=== PATIENT | male | born 1980 | race Asian ===

== ENCOUNTER 2018-10-28 21:30 | Emergency (ER) | payer BC ==
[~2018-10-28] VITALS: Ht 188 cm; Wt 90.7 kg
[2018-10-28 21:42] VITALS: BP 126/83
--- NOTE | 2018-10-28 21:42 | NUR ---
ED Nurse Note: Patient walk in c/o left arm pain since 10/21/2018. Pain started after getting blood drawn from a lab. Patient has burising and swelling to left arm. Patient reports 5/10 pain. at time of arrival patient's forearm does have irregular borders, no skin peeling, just discoloration. patient is alert and oriented x4, ambulatory with a steady gait, VSS
[2018-10-28] MEDS ORDERED: Ketorolac 30mg Inj IV ONE (22:00)
--- NOTE | 2018-10-28 22:25 | NUR ---
ED Nurse Note: Dr. Fletcher at bedside with patient.
[2018-10-28 22:26] LABS: BASOPHILS % (AUTO) 1.2 % (0.0-2.0); EOSINOPHILS % (AUTO) 1.7 % (0.0-3.0); HEMATOCRIT 40.9 % (42.0-52.0); HEMOGLOBIN 14.2 G/DL (14.2-18.0); LYMPHOCYTES % (AUTO) 32.6 % (20.0-45.0); MEAN CORPUSCULAR VOLUME 91 FL (80-99); MONOCYTES % (AUTO) 6.4 % (1.0-10.0); NEUTROPHILS % (AUTO) 58.2 % (45.0-75.0); PLATELET COUNT 243 K/UL (150-450); RED BLOOD COUNT 4.51 M/UL (4.70-6.10); RED CELL DISTRIBUTION WIDTH 11.6 % (11.6-14.8); WHITE BLOOD COUNT 9.7 K/UL (4.8-10.8)
[2018-10-28 22:28] LABS: ANION GAP 9 mmol/L (5-15); BLOOD UREA NITROGEN 20 mg/dL (7-18); CALCIUM 9.1 MG/DL (8.5-10.1); CARBON DIOXIDE 26 MMOL/L (21-32); CHLORIDE 105 MMOL/L (98-107); CREATININE 1.1 MG/DL (0.55-1.30); POTASSIUM 3.8 MMOL/L (3.5-5.1); SODIUM 140 MMOL/L (136-145)
--- NOTE | 2018-10-28 22:30 | NUR ---
ED Nurse Note: Patient went downstairs to ultrasound
[2018-10-28 22:31] LABS: INR 0.9 (0.9-1.1)
[2018-10-28 22:33] LABS: ALANINE AMINOTRANSFERASE 28 U/L (12-78); ALBUMIN/GLOBULIN RATIO 1.1 (1.0-2.7); ALKALINE PHOSPHATASE 93 U/L (46-116); ASPARTATE AMINO TRANSFERASE < 5 U/L (15-37); BILIRUBIN,TOTAL 0.3 MG/DL (0.2-1.0)
--- NOTE | 2018-10-28 22:47 | Consultation ---
History of Present Illness General Date patient seen: Oct 28, 2018 Reason for Hospitalization: Upper Extremity Injury Present Illness HPI This is a very pleasant 38-year-old male who presents emergency department [facility] for evaluation of worsening left upper extremity pain. Patient states that approximately last Friday at 9 AM in the morning he had a routine blood draw through his left antecubital fossa medial aspect. Soon after he began to develop a little bit of swelling in the area and shooting pain. Over the subsequent 1-2 days began to know significantly more swelling with decrease active and passive range of motion and discomfort. He went to an urgent care which evaluated him and gave him reassurance as well as pain medication and told him to return if worsening condition. Today patient went to his primary care physician who evaluated him noticed a large bruise and had concerns for possible fasciitis and referred him to the emergency department at [facility] for evaluation. Patient states that the swelling/edema has significantly improved over the past week but since the swelling and edema has come down he is noted some bruising in the medial aspect of his left upper arm and worsening discomfort. States that last night he had difficulty falling asleep because no matter what position he would lay in he would feel a shooting pain in his left upper extremity. His pain was worsening he felt very uncomfortable and required evaluation. She describes pain as a sharp shooting pain is left upper extremity from the mid forearm to near the shoulder on the lateral aspect and around the biceps. Patient denies any nausea vomiting fever chills. Otherwise healthy without complaints. She called to evaluate patient given above findings. Allergies: Coded Allergies: No Known Allergies (Unverified , 10/28/18) Medication History No Active Prescriptions or Reported Meds Patient History History Provided By: Patient, Family Member, Medical Record, PMD Healthcare decision maker Resuscitation status Advanced Directive on File Past Medical/Surgical History Past Medical/Surgical History: (1) Pain of left upper extremity Review of Systems Review of Symptoms General ROS: no weight loss or fever Psychological ROS: no depression or mood changes, no memory loss Ophthalmic ROS: no visual changes or eye irritation ENT ROS: no nasal congestion, hearing loss, dizziness Allergy and Immunology ROS: no allergic symptoms or urticaria Hematological and Lymphatic ROS: no swollen glands, unusual bleeding or bruising Endocrine ROS: no polyuria, polydipsia, weight changes, temperature intolerance Respiratory ROS: no cough, shortness of breath, or wheezing Cardiovascular ROS: no chest pain or dyspnea on exertion Gastrointestinal ROS: denies abdominal pain, bright red blood in stool. Musculoskeletal ROS: no myalgias or arthralgias Neurological ROS: no TIA or stroke symptoms Dermatological ROS: no new or changing skin lesions, rashes or pruritis Physical Exam Physical Exam General appearance: alert, cooperative, no distress, appears stated age Head: Normocephalic, without obvious abnormality, atraumatic Eyes: conjunctivae/corneas clear. PERRL, EOM's intact. Fundi benign Throat: Lips, mucosa, and tongue normal. Teeth and gums normal Neck: supple, symmetrical, trachea midline, no adenopathy, thyroid: not enlarged, symmetric, no tenderness/mass/nodules, no carotid bruit and no JVD Lungs: clear to auscultation bilaterally Heart: regular rate and rhythm, S1, S2 normal, no murmur, click, rub or gallop Abdomen: soft, non-tender. Bowel sounds normal. No masses, no organomegaly Extremities: extremities normal, atraumatic, no cyanosis or edema. No significant edema noted in the left upper extremity but resolving bruising/ potential hematoma noted in the medial aspect of the left upper extremity from the mid forearm to the mid bicep. Minimally decreased active and passive range of motion neuro intact sensory intact pain described on palpation of the medial aspect of the antecubital fossa the bicep muscle the lateral aspect of the shoulder and the mid anterior forearm. Palpable ulnar and radial pulses in the left upper extremity palpable brachial pulse. Palpable axillary pulse. No signs of infection. Pulses: 2+ and symmetric Skin: Skin color, texture, turgor normal. No rashes or lesions Neurologic: Grossly normal Last 24 Hour Vital Signs Date Time Temp Pulse Resp B/P (MAP) Pulse Ox O2 Delivery O2 Flow Rate FiO2 10/28/18 21:42 98.1 75 16 126/83 96 Room Air 10/28/18 21:37 98.1 75 16 126/83 96 Room Air Laboratory Tests Test 10/28/18 22:00 White Blood Count 9.7 K/UL (4.8-10.8) Red Blood Count 4.51 M/UL (4.70-6.10) L Hemoglobin 14.2 G/DL (14.2-18.0) Hematocrit 40.9 % (42.0-52.0) L Mean Corpuscular Volume 91 FL (80-99) Mean Corpuscular Hemoglobin 31.4 PG (27.0-31.0) H Mean Corpuscular Hemoglobin Concent 34.6 G/DL (32.0-36.0) Red Cell Distribution Width 11.6 % (11.6-14.8) Platelet Count 243 K/UL (150-450) Mean Platelet Volume 7.2 FL (6.5-10.1) Neutrophils (%) (Auto) 58.2 % (45.0-75.0) Lymphocytes (%) (Auto) 32.6 % (20.0-45.0) Monocytes (%) (Auto) 6.4 % (1.0-10.0) Eosinophils (%) (Auto) 1.7 % (0.0-3.0) Basophils (%) (Auto) 1.2 % (0.0-2.0) Prothrombin Time 9.9 SEC (9.30-11.50) Prothromb Time International Ratio 0.9 (0.9-1.1) Activated Partial Thromboplast Time 33 SEC (23-33) Sodium Level 140 MMOL/L (136-145) Potassium Level 3.8 MMOL/L (3.5-5.1) Chloride Level 105 MMOL/L (98-107) Carbon Dioxide Level 26 MMOL/L (21-32) Anion Gap 9 mmol/L (5-15) Blood Urea Nitrogen 20 mg/dL (7-18) H Creatinine 1.1 MG/DL (0.55-1.30) Estimat Glomerular Filtration Rate > 60 mL/min (>60) Glucose Level 156 MG/DL (74-106) H Calcium Level 9.1 MG/DL (8.5-10.1) Total Bilirubin 0.3 MG/DL (0.2-1.0) Aspartate Amino Transf (AST/SGOT) < 5 U/L (15-37) L Alanine Aminotransferase (ALT/SGPT) 28 U/L (12-78) Alkaline Phosphatase 93 U/L (46-116) Total Protein 7.7 G/DL (6.4-8.2) Albumin 4.0 G/DL (3.4-5.0) Globulin 3.7 g/dL Albumin/Globulin Ratio 1.1 (1.0-2.7) Height (Feet): 6 Height (Inches): 2.00 Weight (Pounds): 200 Assessment/Plan Problem List: (1) Pain of left upper extremity Assessment & Plan: This is a 38-year-old male who presents with worsening pain of his left upper extremity after likely traumatic injury with brachial artery blood drawl resulting in hematoma edema swelling. Since edema has significantly improved and subsided but now the swelling has decreased patient has began to note more sharp shooting pain. Patient's motor examination is improved over the past week as the edema has subsided. Bruising noted in the medial aspect of the left upper extremity beginning the antecubital fossa and extending towards the mid biceps and mid forearm. No signs of acute active inflammatory process noted. Patient afebrile he is medically stable and labs otherwise unremarkable. Given above findings patient likely had a brachial artery blood draw a resulting in hematoma and resulting inflammatory reaction which is now subsiding. Given the area of injury and location there is potential for irritation of the adjacent nerve which given distribution of patient's pain is likely. No drainable abscess hematoma or other abnormality identified. She has good arterial flow identified in the axilla brachial ulnar and radial with no deficits. No acute surgical intervention necessary at this time Left upper extremity venous duplex studies to evaluate for DVT and as well as remaining blood/fluid collection and good arterial flow without thrombus. Recommend warm compress Recommend continued active movement of the left upper extremity Recommend anti-inflammatory and pain medications as necessary Follow-up in 1 week Return to emergency department or office [facility] if worsening condition You for allowing me to participate in this patient's care ICD Codes: M79.602 - Pain in left arm SNOMED: [id number] Status: stable [email or web address] Oct 28, 2018 22:47
--- NOTE | 2018-10-28 22:48 | Emergency Room Report ---
History of Present Illness General Chief Complaint: Upper Extremity Injury Source: Patient Present Illness HPI Patient presents with reports of swelling and painful region in the left upper arm Patient had a blood draw last week reports that initially there was a bruise that was large and the size now however the discomfort has continued to worsen Patient saw his primary physician today and was sent in for further evaluation Denies any fevers or chills pain is worse with full extension of the arm Denies any other fall or trauma The region that is swollen and in question was the area where the blood draw was taken Allergies: Coded Allergies: No Known Allergies (Unverified , 10/28/18) Patient History Past Medical History: see triage record Pertinent Family History: none Reviewed Nursing Documentation: PMH: Agreed; PSxH: Agreed Nursing Documentation-PMH Hx Cardiac Problems: No - high cholesterol Hx Diabetes: Yes - pre diabetic Review of Systems All Other Systems: negative except mentioned in HPI Physical Exam Vital Signs Date Time Temp Pulse Resp B/P (MAP) Pulse Ox O2 Delivery O2 Flow Rate FiO2 10/28/18 21:37 98.1 75 16 126/83 96 Room Air Sp02 EP Interpretation: reviewed, normal General Appearance: well appearing, no apparent distress Eyes: bilateral eye PERRL, bilateral eye EOMI ENT: normal pharynx Neck: supple Respiratory: lungs clear, no retraction, no accessory muscle use Cardiovascular #1: regular rate, rhythm Gastrointestinal: non tender, soft Musculoskeletal: other - Patient is able to extend the arm with some pain however also able to flex at the elbow, sensory is intact there is some obvious swelling noted to the medial aspect of the left elbow also the forearm Neurologic: alert, oriented x3, responsive Skin: other - Ecchymosis and bruising noted to the medial aspect, the ecchymosis does extend about 3-4 cm below the elbow also 2 cm above the elbow mainly medial and posterior no obvious pulsatile masses Lymphatic: no adenopathy Medical Decision Making Diagnostic Impression: Primary Impression: Hematoma ER Course Given the patient's symptoms and presentation multiple differentials are considered Including but not limited to compartment syndrome, hematoma, DVT Patient has ultrasound obtained Blood work are at baseline levels Given the patient's discomfort Gen. surgery was also consulted At this time it is felt that the patient is experiencing secondary effects of the hematoma and he will have close outpatient follow-up Labs Test 10/28/18 22:00 White Blood Count 9.7 K/UL (4.8-10.8) Red Blood Count 4.51 M/UL (4.70-6.10) Hemoglobin 14.2 G/DL (14.2-18.0) Hematocrit 40.9 % (42.0-52.0) Mean Corpuscular Volume 91 FL (80-99) Mean Corpuscular Hemoglobin 31.4 PG (27.0-31.0) Mean Corpuscular Hemoglobin Concent 34.6 G/DL (32.0-36.0) Red Cell Distribution Width 11.6 % (11.6-14.8) Platelet Count 243 K/UL (150-450) Mean Platelet Volume 7.2 FL (6.5-10.1) Neutrophils (%) (Auto) 58.2 % (45.0-75.0) Lymphocytes (%) (Auto) 32.6 % (20.0-45.0) Monocytes (%) (Auto) 6.4 % (1.0-10.0) Eosinophils (%) (Auto) 1.7 % (0.0-3.0) Basophils (%) (Auto) 1.2 % (0.0-2.0) Prothrombin Time 9.9 SEC (9.30-11.50) Prothromb Time International Ratio 0.9 (0.9-1.1) Activated Partial Thromboplast Time 33 SEC (23-33) Sodium Level 140 MMOL/L (136-145) Potassium Level 3.8 MMOL/L (3.5-5.1) Chloride Level 105 MMOL/L (98-107) Carbon Dioxide Level 26 MMOL/L (21-32) Anion Gap 9 mmol/L (5-15) Blood Urea Nitrogen 20 mg/dL (7-18) Creatinine 1.1 MG/DL (0.55-1.30) Estimat Glomerular Filtration Rate > 60 mL/min (>60) Glucose Level 156 MG/DL (74-106) Calcium Level 9.1 MG/DL (8.5-10.1) Total Bilirubin 0.3 MG/DL (0.2-1.0) Aspartate Amino Transf (AST/SGOT) < 5 U/L (15-37) Alanine Aminotransferase (ALT/SGPT) 28 U/L (12-78) Alkaline Phosphatase 93 U/L (46-116) Total Protein 7.7 G/DL (6.4-8.2) Albumin 4.0 G/DL (3.4-5.0) Globulin 3.7 g/dL Albumin/Globulin Ratio 1.1 (1.0-2.7) Other X-Ray Diagnostic Results Other X-Ray Diagnostic Results : X-Ray ordered: Left elbow # of Views/Limited Vs Complete: 3 View Indication: Pain EP Interpretation: Yes Interpretation: no dislocation, no soft tissue swelling, no fractures Impression: No acute disease Electronically Signed by: Ava Nunez DO CT/MRI/US Diagnostic Results CT/MRI/US Diagnostic Results : Impression Venous ultrasound: No obvious DVT Last Vital Signs Date Time Temp Pulse Resp B/P (MAP) Pulse Ox O2 Delivery O2 Flow Rate FiO2 10/28/18 21:42 98.1 75 16 126/83 96 Room Air Status: improved Disposition: HOME, SELF-CARE Condition: Improved Scripts Hydrocodone Bit/Acetaminophen 5-325* (NORCO 5-325*) 1 Each Tablet 1 TAB ORAL Q6H PRN for For Pain, #8 TAB 0 Refills Prov: Ava Nunez DO 10/28/18 Ibuprofen* (MOTRIN*) 600 Mg Tablet 600 MG ORAL Q8H PRN for For Pain, #20 TAB 0 Refills Prov: Ava Nunez DO 10/28/18 Referrals: NON PHYSICIAN (PCP) Additional Instructions: Patient is provided with the discharge instructions notified to follow up with primary doctor in the next 2-3 days otherwise return to the er with any worsening symptoms. Please note that this report is being documented using [employer] technology. This can lead to erroneous entry secondary to incorrect interpretation by the dictating instrument. Ava Nunez DO Oct 28, 2018 22:48
--- NOTE | 2018-10-28 23:09 | NUR ---
ED Nurse Note: Report given to Colin MillerRN
--- NOTE | 2018-10-28 23:10 | NUR ---
ED Nurse Note: Received patient from [facility]. Patient down in imaging. Family members at bedside.
--- NOTE | 2018-10-28 23:17 | NUR ---
ED Nurse Note: Patient back from imaging.
--- NOTE | 2018-10-28 23:26 | NUR ---
ED Nurse Note: ERMD at bedside
[2018-10-28] MEDS ORDERED: NORCO 5-325 TA1 EACH ORAL (23:30)
[2018-10-28] MEDS ORDERED: IBUPROFEN600 MG ORAL (23:30)
[2018-10-28 23:40] VITALS: BP 126/83
--- NOTE | 2018-10-28 23:40 | NUR ---
ER DISCHARGE NOTE: Patient is cleared to be discharged per ERMD, pt is aox4, on room air, with stable vital signs. pt was given dc and prescription instructions, pt was able to verbalize understanding, pt id band and iv site removed without complications. pt is able to ambulate with steady gait. pt took all belongings. Accompanied by family member.
[2018-10-28] MEDS ORDERED: HYDROcodone/Acetamin 10/325 tab ORAL ONE (23:45)
--- NOTE | 2018-10-29 10:34 | Diagnostic Imaging Report ---
Indications:Swelling, pain Technique: Three or 4 views of the left elbow Comparison: None Findings: No acute fractures. No dislocations. The joint spaces are preserved Impression: Negative
--- NOTE | 2018-10-29 10:39 | Diagnostic Imaging Report ---
Indication: Left upper extremity pain and edema Technique: Grayscale and duplex images of the left upper extremity veins Comparison: none Findings: Exam is somewhat limited; only portions of the veins be visualized due to soft tissue swelling, and patient was able to tolerate only limited compression. The visualized venous segments demonstrate no evidence of intraluminal thrombus. There is normal phasic Doppler waveforms. Normal compressibility to the extent that patient tolerated compression. Impression: Limited exam. No gross evidence of upper extremity venous thrombosis
== END 2018-10-28 23:40 | disposition home or self-care (01) ==
LOC: EMR 21:50
DX: M79.622 Pain in left upper arm (principal)
CPT/HCPCS: 36415; 73080; 80053; 85025; 85610; 85730; 93971; 96374; 99284; J1885